=== PATIENT | male | born 1970 | race Asian ===

== ENCOUNTER 2020-05-31 17:51 | Inpatient (IN) | payer BC, SELFPAY ==
[~2020-05-31] VITALS: Ht 165.1 cm; Wt 83.0 kg
--- NOTE | 2020-05-31 18:00 | NUR ---
AMBULATED TO BED 8
[2020-05-31 18:04] VITALS: BP_SYST 156
--- NOTE | 2020-05-31 18:05 | NUR ---
Patient came from home for evaluation of lower right quadrant abdominal pain since this morning. Patient denies nausea and vomiting. He reports going to urgent care and being instructed to check in to the ER for evaluation of appendecitis.
--- NOTE | 2020-05-31 18:10 | NUR ---
ER at bedside examining patient.
[2020-05-31 18:36] LABS: BASOPHILS % (AUTO) 0.3 % (0.0-2.0); HEMATOCRIT 47.1 % (36-54); HEMOGLOBIN 16.1 g/dL (14.0-18.0); LYMPHOCYTES # (AUTO) 0.3 K/uL (1.0-5.5); LYMPHOCYTES % (AUTO) 2.5 % (20.5-51.5); MEAN CORPUSCULAR HEMOGLOBIN 33 pg (27-31); MEAN CORPUSCULAR HGB CONC 34 % (32-36); MEAN CORPUSCULAR VOLUME 96 fL (79.0-98.0); MONOCYTES # (AUTO) 0.3 K/uL (0.0-1.0); MONOCYTES % (AUTO) 2.1 % (1.7-9.3); NEUTROPHILS # (AUTO) 11.9 K/uL (1.8-7.7); NEUTROPHILS % (AUTO) 95.1 % (40.0-70.0); PLATELET COUNT (AUTO) 347 K/uL (130-430); RED BLOOD CELL COUNT(AUTO) 4.92 MIL/uL (4.2-6.2); WHITE BLOOD COUNT (AUTO) 12.5 K/uL (4.8-10.8)
[2020-05-31 18:47] LABS: CALCIUM 9.1 mg/dL (8.4-11.0); CREATININE 1.2 mg/dL (0.55-1.30); POTASSIUM 3.9 mmol/L (3.5-5.1)
[2020-05-31 18:53] LABS: ALBUMIN 4.1 g/dL (3.4-4.8); TOTAL BILIRUBIN 0.5 mg/dL (0.0-1.0)
--- NOTE | 2020-05-31 19:05 | NUR ---
VSS no s/s of acute distress Resting on gurney rails up
[2020-05-31] MEDS ORDERED: NACL 0.9% 2,000 ML IV ONE (20:30)
[2020-05-31] MEDS ORDERED: KETOROLAC TROMETHAMINE 30 MG VIAL IVP ONE (20:30)
[2020-05-31] MEDS ORDERED: cefTRIAXone 1 GM IVPB PREMIX 50 ML IV ONE (20:30)
--- NOTE | 2020-05-31 21:30 | NUR ---
IVF and Meds well tolerated
--- NOTE | 2020-05-31 22:01 | NUR ---
Patient will be admitted to care of Dr. Botello. Admitted to Tele unit. Will go to room 109. Belongings list completed. Complete and up to date summary report printed. SBAR report to be given at bedside with opportunity for questions.
--- NOTE | 2020-05-31 22:01 | NUR ---
Transfer to Tele via ACLS protocol. Licensed nurse present. IV present no signs or symptoms of infiltration.
--- NOTE | 2020-05-31 22:01 | NUR ---
ADMIT NOTE Received pt from ER to the floor with a diagnosis of SEPSIS, PYELONEPHRITIS. Admission process initiated. patient oriented to pain management, safety and call light-teach back done.
[2020-05-31] MEDS ORDERED: TAMSULOSIN HCL 0.4 MG CAP PO ONE (22:30)
[2020-05-31 22:39] VITALS: BP_SYST 157
[2020-05-31] MEDS: NACL 0.9% 1,000 ML IV SCH (22:52)
[2020-05-31] MEDS ORDERED: MESA400C2 PO (23:14)
[2020-05-31] MEDS ORDERED: AZAT50TA18 PO (23:14)
[2020-06-01] VITALS: BP_SYST 138
--- NOTE | 2020-06-01 00:08 | NUR ---
CONSULTATION PAGED/CALLED Reason for Consultation: PYELONEPHRITIS Person Who was Notified: DR. CRYSTAL VOICE MAIL Consulting Physician: DR Jae CRYSTAL Site Acquisition Specialist Specialty: Ordering Physician: ZUNILDA
--- NOTE | 2020-06-01 03:43 | NUR ---
Rounds: patient is resting comfortably in bed. No acute distress. Tolerating room air, even and unlabored respirations. IV fluids infusing well. Call light w/ patient. Will continue monitoring.
[2020-06-01] MEDS: NACL 0.9% 1,000 ML IV SCH ×4 (05:14→23:59)
--- NOTE | 2020-06-01 06:43 | NUR ---
Closing note: Patient is asleep. No acute distress, even and unlabored breathing on room air. IV fluids infusing well, IV site patent and intact. All needs met. Safety, fall precautions observed. Will endorse care to dayshift RN.
[2020-06-01 08:00] VITALS: BP_SYST 139
[2020-06-01 08:52] LABS: BASOPHILS % (AUTO) 0.5 % (0.0-2.0); EOSINOPHILS % (AUTO) 0.4 % (0.0-4.0); HEMATOCRIT 40.1 % (36-54); HEMOGLOBIN 13.9 g/dL (14.0-18.0); LYMPHOCYTES # (AUTO) 1.1 K/uL (1.0-5.5); LYMPHOCYTES % (AUTO) 14.1 % (20.5-51.5); MEAN CORPUSCULAR HEMOGLOBIN 33 pg (27-31); MEAN CORPUSCULAR HGB CONC 35 % (32-36); MEAN CORPUSCULAR VOLUME 97 fL (79.0-98.0); MONOCYTES # (AUTO) 0.4 K/uL (0.0-1.0); MONOCYTES % (AUTO) 5.7 % (1.7-9.3); NEUTROPHILS # (AUTO) 6.2 K/uL (1.8-7.7); NEUTROPHILS % (AUTO) 79.3 % (40.0-70.0); PLATELET COUNT (AUTO) 293 K/uL (130-430); RED BLOOD CELL COUNT(AUTO) 4.16 MIL/uL (4.2-6.2); RED CELL DISTRIBUTION WIDTH 13.8 % (9.0-15.0); WHITE BLOOD COUNT (AUTO) 7.8 K/uL (4.8-10.8)
[2020-06-01] MEDS: TAMSULOSIN HCL 0.4 MG CAP PO SCH (08:54)
[2020-06-01] MEDS ORDERED: MESALAMINE 400 MG CAPSULE.DR PO ONE (09:00)
[2020-06-01 09:04] LABS: BILIRUBIN,URINE NEGATIVE (NEGATIVE); BLOOD, URINE 2+ (NEGATIVE); CLARITY/URINE CLEAR (CLEAR); COLOR,URINE YELLOW (YELLOW); GLUCOSE,URINE NEGATIVE (NEGATIVE); KETONES,URINE NEGATIVE (NEGATIVE); LEUKOCYTE ESTERASE ,URINE NEGATIVE (NEGATIVE); NITRITE, URINE NEGATIVE (NEGATIVE); PROTEIN URINE NEGATIVE (NEGATIVE); UROBILINOGEN,URINE 0.2 (0.2-1.0)
[2020-06-01 09:28] LABS: CREATININE 0.94 mg/dL (0.55-1.30); FREE T4 (FREE THYROXINE) 1.1 ng/dl (0.8-1.5); PHOSPHORUS 2.5 mg/dL (2.7-4.5); POTASSIUM 3.8 mmol/L (3.5-5.1); THYROID STIMULATING HORMONE 0.59 uIu/mL (0.36-3.74)
--- NOTE | 2020-06-01 10:13 | NUR ---
alert, oriented, denied pain at this time. Requested strainer, " to see whether i can see any stones on urination, offered per request. FLOMAX 0.4mg po given with full explaination for the usage, in this case his stones. UA, C&S obtained and sent to lab Continues with ivf at 150cc per hour, as indicated by attending.
[2020-06-01 11:17] LABS: BACTERIA,URINE None Seen /HPF (None Seen); WBC,URINE 0-3 /HPF (0-3)
[2020-06-01] MEDS: azaTHIOprine 50 MG TABLET PO SCH (11:48)
[2020-06-01 12:54] VITALS: BP_SYST 142
[2020-06-01] MEDS ORDERED: NA PHOS 30 MM in NS 250 ML IV ONE (13:00)
[2020-06-01 16:24] VITALS: BP_SYST 146
--- NOTE | 2020-06-01 18:09 | NUR ---
Dietitian Recommendations * Recommend continuing cardiac diet LP, RD Please refer to Nutrition Assessment for details. Addendum: 06/01/20 at [address] Amended: Links added.
--- NOTE | 2020-06-01 19:20 | NUR ---
OPENING NOTE: RECEIVED SBAR REPORT FROM DAY SHIFT RN. PATIENT IS AWAKE,ALERT AND ORIENTED X 4. DENIES PAIN. BREATHING IS EVEN AND UNLABORED ON RA. IVF INFUSING ORDERED RATE. NO SING OF INFILTRATION. SAFETY AND FALL PRECAUTIONS ARE IN PLACE. WILL CONTINUE TO MONITOR.
[2020-06-01 20:00] VITALS: BP_SYST 158
[2020-06-01] MEDS ORDERED: LISINOPRIL 10 MG TABLET (PRINIVIL) PO SCH (20:45)
--- NOTE | 2020-06-01 20:47 | NUR ---
MED PASS: PATIENT GIVEN IV MED SCHEDULED. MED INDICATION AND POTENTIAL SIDE EFFECTS EXPLAINED TO PATIENT. PATIENT VERBALIZED UNDERSTANDING. WILL CONTINUE TO MONITOR.
[2020-06-01] MEDS ORDERED: cefTRIAXone 1 GM IVPB PREMIX 50 ML IV SCH (21:00)
[2020-06-01] MEDS ORDERED: LISINOPRIL 10 MG TABLET (PRINIVIL) PO ONE (22:45)
--- NOTE | 2020-06-01 23:57 | NUR ---
LISINOPRIL: PATIENT GIVEN LISINOPRIL 10 MG FOR ELEVATED BLOOD PRESSURE. PATIENT TOLERATED WELL. NO S/S ACUTE DISTRESS NOTED. WILL CONTINUE TO MONITOR.
[2020-06-02] VITALS: BP_SYST 148
--- NOTE | 2020-06-02 01:20 | NUR ---
RN ROUNDS: PATIENT IS IN THE BED, SLEEPING. RESPIRATION IS EVEN AND UNLABORED ON RA. NO S/S ACUTE DISTRESS NOTED. IVF INFUSING ORDERED RATE. SAFETY AND FALL PRECAUTIONS ARE IN PLACE. CALL LIGHT IS WITH PATIENT. WILL CONTINUE TO MONITOR.
--- NOTE | 2020-06-02 03:50 | NUR ---
RN ROUNDS: PATIENT IS SLEEPING. RESPIRATION IS EVEN AND UNLABORED ON RA. SAFETY AND FALL PRECAUTIONS ARE IN PLACE. CALL LIGHT IS WITH PATIENT. WILL CONTINUE TO MONITOR.
[2020-06-02] MEDS: NACL 0.9% 1,000 ML IV SCH (06:08)
--- NOTE | 2020-06-02 06:36 | NUR ---
CLOSING NOTE: PATIENT IS AWAKE. NEW IVF BAG HUNG. NO SIGN OF INFILTRATION NOTED. PATIENT DENIES PAIN. NO S/S ACUTE DISTRESS NOTED.SAFETY AND FALL PRECAUTIONS ARE IN PLACE. CALL LIGHT IS WITH PATIENT. ALL NEEDS ME THROUGHOUT THE SHIFT. WILL ENDORSE PATIENT CARE TO DAY SHIFT RN.
[2020-06-02 08:00] VITALS: BP_SYST 148
[2020-06-02] MEDS: TAMSULOSIN HCL 0.4 MG CAP PO SCH (08:51)
[2020-06-02] MEDS: azaTHIOprine 50 MG TABLET PO SCH (08:51)
[2020-06-02] MEDS ORDERED: LISINOPRIL 10 MG TABLET (PRINIVIL) PO SCH (09:00)
[2020-06-02] MEDS ORDERED: MESALAMINE 400 MG CAPSULE.DR PO SCH (09:00)
[2020-06-02 09:12] LABS: BASOPHILS % (AUTO) 0.9 % (0.0-2.0); EOSINOPHILS % (AUTO) 0.9 % (0.0-4.0); HEMATOCRIT 40.8 % (36-54); HEMOGLOBIN 13.9 g/dL (14.0-18.0); LYMPHOCYTES # (AUTO) 0.9 K/uL (1.0-5.5); LYMPHOCYTES % (AUTO) 19.9 % (20.5-51.5); MEAN CORPUSCULAR HEMOGLOBIN 33 pg (27-31); MEAN CORPUSCULAR HGB CONC 34 % (32-36); MEAN CORPUSCULAR VOLUME 97 fL (79.0-98.0); MONOCYTES # (AUTO) 0.4 K/uL (0.0-1.0); MONOCYTES % (AUTO) 8.2 % (1.7-9.3); NEUTROPHILS # (AUTO) 3.3 K/uL (1.8-7.7); NEUTROPHILS % (AUTO) 70.1 % (40.0-70.0); PLATELET COUNT (AUTO) 298 K/uL (130-430); WHITE BLOOD COUNT (AUTO) 4.7 K/uL (4.8-10.8)
[2020-06-02 09:27] LABS: CALCIUM 8.6 mg/dL (8.4-11.0); CREATININE 0.83 mg/dL (0.55-1.30); PHOSPHORUS 2.3 mg/dL (2.7-4.5); POTASSIUM 3.5 mmol/L (3.5-5.1)
--- NOTE | 2020-06-02 09:35 | NUR ---
Not appeared happy this am , when first seen " they said i have high bp, when checked , it is 148/92, with hr 65. said he is on bp pills at home, when asked the name of the med, " cant remember, but i am on it" will check again after Lisinopril given
[2020-06-02] MEDS ORDERED: CEPH-568 PO (09:42)
[2020-06-02] MEDS ORDERED: LISI10TA5 PO (09:42)
[2020-06-02] MEDS ORDERED: TAMS-11 PO (09:42)
--- NOTE | 2020-06-02 12:03 | NUR ---
lab work done, results reported to drug abuse resistance education officer, cleopatra Paul. will replace with Neutraphos, and Kdur, and patient will be discharged to home today
[2020-06-02 12:29] VITALS: BP_SYST 141
[2020-06-02 13:27] VITALS: BP_SYST 148
[2020-06-02] MEDS ORDERED: POTASSIUM CHLORIDE 20 MEQ TAB.PRT.SR PO ONE (13:30)
[2020-06-02] MEDS ORDERED: NAPH,MB-DB/K PH,MBDB 250 MG TAB PO ONE (13:30)
--- NOTE | 2020-06-02 14:01 | NUR ---
got his Neutra Phos one packet (250mg) and 40meq Kdur po, prior to discharge. Aware he needs to stop by [facility] to pick three new meds, Flomax, Keflex, and Lisinopril on the way home. Discharge instructions reviewed with the patient, in details. Verbalized understanding. Discharged to home now, alert, oriented, and no complaint of abdominal nor flank pain
[2020-06-02] MEDS ORDERED: NEUTPHOSP PO (14:44)
--- NOTE | 2020-06-04 12:25 | NUR ---
Discharge Follow Up Phone Call Phoned patient, . Patient stated he was doing well. He filled his prescriptions and is taking his medications as directed. He agreed to call today to make his follow up appointments with his PCP and urologist. Patient stated he had no questions or concerns. No further follow up needed.
== END 2020-06-02 14:14 | disposition home or self-care (01) | DRG 872 ==
LOC: SED 17:51 → STU 20:59
PROVIDERS: ATTEND Otolaryngology
DX: A41.9 Sepsis, unspecified organism (principal); E87.1 Hypo-osmolality and hyponatremia; K50.90 Crohn's disease, unspecified, without complications; N13.6 Pyonephrosis; N20.2 Calculus of kidney with calculus of ureter; E66.9 Obesity, unspecified; E83.39 Other disorders of phosphorus metabolism; Z68.30 Body mass index [BMI] 30.0-30.9, adult; Z20.828 Contact with and (suspected) exposure to other viral communicable diseases
CPT/HCPCS: 36415; 76376; 80048; 80053; 81000-TC; 83036; 83605; 83735-TC; 84100-TC; 84439; 84443-TC; 85025; 87040-TC; 96361; 96365; 96375; 99291; G0378; J0696; J7050; J7500